=== PATIENT | male | born 1985 | race Caucasian/White ===

== ENCOUNTER 2017-03-01 19:39 | Emergency (ER) | payer OTHER ==
[2017-03-01] MEDS ORDERED: Bacitracin Oint 1 GM U/D Packet TOP ONE (19:47)
[2017-03-01] MEDS ORDERED: Lidocaine 1% 20 ML MDV INJECT ONE (19:47)
--- NOTE | 2017-03-01 20:43 | EDM.PDOC ---
ED HPI GENERAL MEDICAL PROBLEM - General Chief Complaint: Laceration Stated Complaint: RIGHT MIDDLE FINGER CUT Time Seen by Provider: 03/01/17 20:10 Source of Information: Reports: Patient History Limitations: Reports: No Limitations - History of Present Illness INITIAL COMMENTS - FREE TEXT/NARRATIVE: HISTORY AND PHYSICAL: History of present illness: [Patient comes to the emergency room with a laceration to his right medial middle finger. States that he cut his finger about one hour prior to arrival in the ER. Last tetanus was given within the last 5 years.] Review of systems: As per history of present illness and below otherwise all systems reviewed and negative. Past medical history: As per history of present illness and as reviewed below otherwise noncontributory. Surgical history: As per history of present illness and as reviewed below otherwise noncontributory. Social history: No reported history of drug or alcohol abuse. Family history: As per history of present illness and as reviewed below otherwise noncontributory. Physical exam: HEENT: Atraumatic, normocephalic. Extremities: 1 cm laceration right medial middle finger. Neurovascular unremarkable. Neuro: Awake, alert, oriented. Motor and sensory unremarkable throughout. Exam nonfocal. Impression: [laceration R middle finger ] Plan: [Wound is closed without difficulty. See procedure note. Follow-up in ER in 7 days to have sutures removed. All questions are answered and concerns are addressed.] Definitive disposition and diagnosis as appropriate pending reevaluation and review of above. - Related Data Allergies Allergy/AdvReac Type Severity Reaction Status Date / Time No Known Allergies Allergy Verified 03/01/17 19:51 Home Meds: Home Meds Albuterol Sulfate [Ventolin Hfa] 18 gm IH ASDIRECTED 03/01/17 [History] Past Medical History - Past Health History Medical/Surgical History: Denies Medical/Surgical History Respiratory History: Reports: Asthma Social & Family History - Family History Family Medical History: Noncontributory - Tobacco Use Smoking Status *Q: Never Smoker - Caffeine Use Caffeine Use: Reports: Soda - Recreational Drug Use Recreational Drug Use: No ED ROS GENERAL - Review of Systems Review Of Systems: ROS reveals no pertinent complaints other than HPI. ED EXAM, SKIN/RASH Exam: See Below ED SKIN PROCEDURES - Laceration/Wound Repair Right Middle Medial Finger Lac/Wound length In cm: 1 Appearance: Subcutaneous Distal NVT: Neuro & Vascular Intact Anesthetic Type: Local Local Anesthesia - Lidocaine (Xylocaine): 1% Plain Local Anesthetic Volume: 2cc Skin Prep: Chlorhexidine (Hibiciens), Isopropyl Alcohol (Alcohol), Saline Exploration/Debridement/Repair: Wound Explored Closed with: Sutures Suture Size: 4-0 # of Sutures: 4 Suture Type: Nylon (4) Sterile Dressing Applied: Nurse Tetanus Status Addressed: Yes Complications: No Course - Vital Signs Last Recorded V/S: Last Vital Signs Temp 98 F 03/01/17 19:40 Pulse 97 03/01/17 21:00 Resp 16 03/01/17 21:00 BP 117/91 H 03/01/17 21:00 Pulse Ox 97 03/01/17 21:00 - Orders/Labs/Meds Meds: Medications Discontinued Medications Generic Name Dose Route Start Last Admin Trade Name Felix PRN Reason Stop Dose Admin Bacitracin 1 dose 03/01/17 19:47 03/01/17 20:41 Bacitracin Oint 1 Gm TOP 03/01/17 19:48 1 dose ONETIME ONE Administration Lidocaine HCl 20 ml 03/01/17 19:47 03/01/17 20:41 Xylocaine 1% INJECT 03/01/17 19:48 20 ml ONETIME ONE Administration Departure - Departure Time of Disposition: 20:45 Disposition: Home, Self-Care 01 Condition: Good Clinical Impression: Laceration - Discharge Information Instructions: Laceration Care, Adult Referrals: PCP,None [Primary Care Provider] - Forms: ED Department Discharge Additional Instructions: The following information is given to patients seen in the emergency department who are being discharged to home. This information is to outline your options for follow-up care. We provide all patients seen in our emergency department with a follow-up referral. The need for follow-up, as well as the timing and circumstances, are variable depending upon the specifics of your emergency department visit. If you don't have a primary care physician on staff, we will provide you with a referral. We always advise you to contact your personal physician following an emergency department visit to inform them of the circumstance of the visit and for follow-up with them and/or the need for any referrals to a consulting specialist. The emergency department will also refer you to a specialist when appropriate. This referral assures that you have the opportunity for follow-up care with a specialist. All of these measure are taken in an effort to provide you with optimal care, which includes your follow-up. Under all circumstances we always encourage you to contact your private physician who remains a resource for coordinating your care. When calling for follow-up care, please make the office aware that this follow-up is from your recent emergency room visit. If for any reason you are refused follow-up, please contact the [facility] emergency department at and asked to speak to the emergency department charge nurse. [facility] [address] [place] [id number] Follow-up with your primary care provider in 48-72 hours. Return to ER for suture removal in 7 days and as needed as discussed..
[2017-03-01 21:01] VITALS: BP 117/91
== END 2017-03-01 21:04 | disposition home or self-care (01) ==
LOC: MW.ED 19:39
DX: S61.212A Laceration without foreign body of right middle finger without damage to nail, initial encounter (principal); J45.909 Unspecified asthma, uncomplicated; W26.8XXA Contact with other sharp object(s), not elsewhere classified, initial encounter
CPT/HCPCS: 12001; 99282

== ENCOUNTER 2021-12-29 15:57 | Emergency (ER) | payer BC, OTHER ==
[2021-12-29 16:07] VITALS: BP 136/97
[2021-12-29 16:59] VITALS: PULSE 99
== END 2021-12-29 16:46 | disposition home or self-care (01) ==
LOC: MW.ED 15:57
DX: K04.7 Periapical abscess without sinus (principal); Z86.16 Personal history of COVID-19
CPT/HCPCS: 99282

== ENCOUNTER 2022-05-30 08:22 | Emergency (ER) | payer BC ==
[2022-05-30 08:30] VITALS: BP 121/82; PULSE 112
[2022-05-30] MEDS: predniSONE 20 MG Tab PO ONE (08:43)
[2022-05-30] MEDS: Albuterol/Ipratropium 3.0-0.5 MG/3 ML Neb Soln NEB ONE (08:43)
== END 2022-05-30 10:34 | disposition home or self-care (01) ==
LOC: MW.ED 08:22
DX: J45.901 Unspecified asthma with (acute) exacerbation (principal); Z79.899 Other long term (current) drug therapy; Z86.16 Personal history of COVID-19
CPT/HCPCS: 99284; A9270; J7620-GY